=== PATIENT | female | born 1945 | race Caucasian/White ===

== ENCOUNTER 2016-11-20 11:12 | Emergency (ER) | payer MEDICARE, BC ==
[2016-11-20 11:24] VITALS: BP 131/81
[2016-11-20] MEDS ORDERED: Alum Hydrox/Mag Hydrox/Simeth 30 ML, Lidocaine 2% 15 ML PO ONE ×2 (11:25)
[2016-11-20 12:10] LABS: CHLORIDE,CL 104 mEq/L (98-106); SODIUM,NA 140 mEq/L (136-145)
--- NOTE | 2016-11-20 12:31 | EDM.PDOC ---
ED HPI GENERAL MEDICAL PROBLEM - General Chief Complaint: Chest Pain Stated Complaint: chest pain Time Seen by Provider: 11/20/16 11:19 Source of Information: Reports: Patient, Family History Limitations: Reports: No Limitations - History of Present Illness Onset: Today, Sudden Duration: Hour(s): Location: Reports: Chest Quality: Reports: Burning, Sharp Severity: Moderate Improves with: Reports: Medication Worsens with: Reports: None Associated Symptoms: Reports: Chest Pain Chest Pain Score (Numeric/FACES): 3 - Related Data Allergies Allergy/AdvReac Type Severity Reaction Status Date / Time azatadine maleate Allergy Cannot Verified 11/20/16 11:31 [From Optimine] Remember carbenicillin indanyl sodium Allergy Cannot Verified 11/20/16 11:31 [From Geocillin] Remember cefazolin sodium [From Ancef] Allergy Rash Verified 11/20/16 11:31 ciprofloxacin [From Cipro] Allergy Edema Verified 11/20/16 11:31 dabigatran etexilate Allergy Edema Verified 11/20/16 11:31 [From Pradaxa] ranitidine HCl [From Zantac] Allergy Blurred Verified 11/20/16 11:31 Vision venom-honey bee Allergy Difficulty Verified 11/20/16 11:31 [bee venom (honey bee)] Swallowing warfarin sodium Allergy Cannot Verified 11/20/16 11:31 [From Coumadin] Remember cephalexin monohydrate AdvReac Blurred Verified 11/20/16 11:31 [From Keflex] Vision ezetimibe AdvReac Muscle Verified 11/20/16 11:31 [From Vytorin 10-10] Aches simvastatin AdvReac Muscle Verified 11/20/16 11:31 [From Vytorin 10-10] Aches Home Meds: Home Meds Esomeprazole Magnesium [Nexium] 40 mg PO DAILY PRN 05/31/13 [History] Famotidine/Ca Carb/Mag Hydrox [Pepcid Complete Tablet Chew] 1 each PO DAILY PRN 06/02/13 [History] Hydrocodone/Acetaminophen [Hydrocodon-Acetaminophn 10-325] 1 tab PO Q4H PRN [History] Bevacizumab [Avastin] 400 mg IV Q21D 07/03/16 [History] Aspirin [Ecotrin] 81 mg PO DAILY 05/29/17 [History] Past Medical History HEENT History: Reports: Impaired Vision Cardiovascular History: Reports: High Cholesterol Respiratory History: Reports: Other (See Below) Other Respiratory History: lung nodule Gastrointestinal History: Reports: GERD 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) Other OB/BYN History: malignant neoplasm of ovary Musculoskeletal History: Reports: Osteoarthritis Endocrine/Metabolic History: Reports: Hypothyroidism Oncologic (Cancer) History: Reports: Lung Other Oncologic History: CERVICAL AND OVARIAN MANY YEARS AGO, 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 - Past Surgical History GI Surgical History: Reports: Cholecystectomy, Hernia Repair/Other, Ansley Fundoplication Female Surgical History: Reports: Hysterectomy Musculoskeletal Surgical History: Reports: Shoulder Surgery Social & Family History - Family History Family Medical History: Noncontributory Cardiac: Reports: CAD, Hypertension Endocrine/Metabolic: Reports: Diabetes, type II - Tobacco Use Smoking Status *Q: Never Smoker Second Hand Smoke Exposure: No - Caffeine Use Caffeine Use: Reports: Coffee - Recreational Drug Use Recreational Drug Use: No - Living Situation & Occupation Living situation: Reports: with Family ED ROS GENERAL - Review of Systems Review Of Systems: See Below Constitutional: Reports: Weakness HEENT: Reports: Dental Pain Respiratory: Reports: No Symptoms Cardiovascular: Reports: Chest Pain GI/Abdominal: Reports: Abdominal Pain, Other Musculoskeletal: Reports: No Symptoms Skin: Reports: No Symptoms Neurological: Reports: No Symptoms Psychiatric: Reports: Anxiety ED EXAM, GENERAL - Physical Exam Exam: See Below Exam Limited By: No Limitations General Appearance: Alert, WD/WN Ears: Normal External Exam Nose: Normal Inspection Throat/Mouth: Normal Inspection Head: Atraumatic, Normocephalic Neck: Normal Inspection Respiratory/Chest: No Respiratory Distress, Rhonchi Cardiovascular: Regular Rate, Rhythm, No Edema, No Rub GI/Abdominal: Normal Bowel Sounds, Soft, Non-Tender Back Exam: Normal Inspection Extremities: Normal Inspection Neurological: Alert, Oriented Psychiatric: Anxious Skin Exam: Warm, Dry Course - Vital Signs Last Recorded V/S: Last Vital Signs Temp 98.4 F 11/20/16 11:16 Pulse 79 11/20/16 11:16 Resp 20 11/20/16 11:16 BP 131/81 11/20/16 11:16 Pulse Ox 98 11/20/16 11:16 - Orders/Labs/Meds Orders: Active Orders 24 hr Category Date Time Status Chest 2V [CR] Stat Exams 11/20/16 11:20 Taken Labs: Laboratory Tests 11/20/16 11/20/16 11/20/16 Range/Units 11:45 11:45 11:45 WBC 4.4 L (5.0-10.0) 10^3/uL RBC 2.93 L (4.00-5.50) 10^6/uL Hgb 11.0 L (12.0-16.0) g/dL Hct 33.4 L (37.0-47.0) % MCV 114.0 H (82.0-94.0) fL MCH 37.5 H (27.0-32.0) pg MCHC 32.9 L (33.0-38.0) g/dL RDW Coeff of Reyes 14.9 (11.0-15.0) % Plt Count 285 (150-400) 10^3/uL Neut % (Auto) 65.3 (35-85) % Lymph % (Auto) 19.6 (10-55) % [place] % (Auto) 13.1 (0-16) % Eos % (Auto) 1.8 (0-5) % Baso % (Auto) 0.2 (0-3) % Neut # (Auto) 2.90 (1.80-7.00) 10^3/uL Lymph # (Auto) 0.87 L (1.00-4.80) 10^3/uL [place] # (Auto) 0.58 (0.00-0.80) 10^3/uL Eos # (Auto) 0.08 (0.00-0.45) 10^3/uL Baso # (Auto) 0.01 10^3/uL PT 10.7 (9.7-12.3) SEC INR 0.99 (0.92-1.18) APTT 26.2 (20.0-45.0) SEC Sodium 140 (136-145) mEq/L Potassium 4.3 (3.5-5.0) mEq/L Chloride 104 (98-106) mEq/L Carbon Dioxide 29 (21-32) mmol/L BUN 10 (7-18) mg/dL Creatinine 0.8 (0.6-1.0) mg/dL Est Cr Clr Drug Dosing 49.53 mL/min Estimated GFR (MDRD) > 60 (>=60) mL/min Glucose 111 H (75-99) mg/dL Calcium 8.7 (8.4-10.1) mg/dL Lactate Dehydrogenase 161 (100-190) U/L Creatine Kinase 44 (21-215) U/L Troponin I 0.034 (0.00-0.06) ng/mL Meds: Medications Discontinued Medications Generic Name Dose Route Start Last Admin Trade Name Freq PRN Reason Stop Dose Admin Al Hydroxide/Mg Hydroxide 30 0 ml 11/20/16 11:25 11/20/16 11:28 ml/ Lidocaine HCl 15 ml PO 11/20/16 11:26 45 ml ONETIME ONE Administration Departure - Departure Time of Disposition: 12:29 Disposition: Home, Self-Care 01 Condition: good Clinical Impression: Chronic GERD Instructions: Indigestion, [id number] Forms: ED Department Discharge Additional Instructions: follow up with your regular doctor. You may need daily medications to control you GERD - My Orders Last 24 Hours: My Active Orders 11/20/16 11:20 Chest 2V [CR] Stat - Assessment/Plan Last 24 Hours: My Active Orders 11/20/16 11:20 Chest 2V [CR] Stat
== END 2016-11-20 12:40 | disposition home or self-care (01) ==
LOC: CC.ED 11:12
DX: K21.9 Gastro-esophageal reflux disease without esophagitis (principal); E78.00 Pure hypercholesterolemia, unspecified; E11.9 Type 2 diabetes mellitus without complications; E03.9 Hypothyroidism, unspecified; M19.90 Unspecified osteoarthritis, unspecified site; Z79.82 Long term (current) use of aspirin; Z88.1 Allergy status to other antibiotic agents; Z91.030 Bee allergy status; Z90.710 Acquired absence of both cervix and uterus; Z90.49 Acquired absence of other specified parts of digestive tract; Z88.8 Allergy status to other drugs, medicaments and biological substances; Z79.899 Other long term (current) drug therapy
CPT/HCPCS: 36415; 71020; 80048; 82550; 83615; 84484; 85025; 85610; 85730; 93005; 93010; 99283; 99285; A9270

== ENCOUNTER 2016-12-24 19:02 | Emergency (ER) | payer MEDICARE, BC ==
[~2016-12-24 19:02] MED LIST: Ondansetron 4 MG Tab.DIS PO ONE
[2016-12-24] MEDS ORDERED: Sodium Chloride 0.9% 10 ML Syringe FLUSH PRN (19:14)
[2016-12-24 19:50] LABS: CHLORIDE,CL 100 mEq/L (98-106); SODIUM,NA 135 mEq/L (136-145)
--- NOTE | 2016-12-24 19:51 | EDM.PDOC ---
ED HPI GENERAL MEDICAL PROBLEM - General Chief Complaint: Fever Stated Complaint: fever, nausea, fatigue Time Seen by Provider: 12/24/16 19:10 Source of Information: Reports: Patient, Family History Limitations: Reports: No Limitations - History of Present Illness INITIAL COMMENTS - FREE TEXT/NARRATIVE: History and physical: History of present illness: [Patient comes the emergency room complaining of fever, fatigue and malaise. On December 22 she had a right pleural effusion drained resulting in 500 mL's. This was done by her specialist in [place]. That evening she developed body aches, fever and malaise. Highest temp was 100.8. She took 4 Advil at 5 PM today. She' s felt decreased appetite, nauseous and had episodes of vomiting for the past several days. had one episode of vomiting today. She is feeling more short of breath but denies any chest pain. She is feeling more weak and tired than usual. Complains of left hip pain which has been present for the past several weeks. Denies symptoms of cold or illness, abdominal pain and diarrhea. She is feeling more constipated than usual and last bowel movement was on Sunday, December 22. No burning with urination, urinary urgency or hematuria. Denies low back pain and neck pain. No numbness or tingling.] Review of Systems: As per history of present illness and below otherwise all systems reviewed and negative. Past medical history: As per history of present illness and as reviewed below otherwise noncontributory. Surgical history: As per history of present illness and is reviewed below other molina noncontributory. Social history: No reported history of drug or alcohol abuse. Family history: As per history of present illness and is reviewed below otherwise noncontributory. Physical exam: HEENT: Atraumatic, normocephalic. mucous membranes pink and slightly dry. neck supple, no lymphadenopathy. Lungs: Diminished breath sounds extend from right mid lung to right lower lung. Otherwise lung sounds are clear to auscultation throughout. Heart: S1-S2, regular rate and rhythm. No murmur gallop click or rub. Abdomen: Bowel sounds are present but hypoactive in all 4 quadrants. Abdomen is soft nondistended and nontender. No masses guarding or rebound. Genitourinary: Deferred. Rectal: Deferred. Extremities: atraumatic, no cyanosis or edema to feet or lower legs. Neurovascular unremarkable. Neuro: Awake, alert, oriented. Motor and sensory unremarkable throughout. Exam nonfocal. Diagnostics: [CBC, CMP, urinalysis, lactic acid, blood cultures, chest x-ray, CT chest with contrast] Therapeutics: [Zofran 4 mg IV] Impression: [Nausea and vomiting] Plan: [Lab results show no infection or other concerns. No cause identified in her labs for her nausea and vomiting. Patient's nausea is significantly improved with Zofran. CT result is called by Dr. Do from [place] [facility] who reports that patient's chest CT is unchanged from that of December 15. There is moderate right pleural fluid noted. This is reviewed with patient and we discussed that this likely is not an emergent problem at this time. Offered to her that we could contact her oncologist and possibly transfer to [place] yet this evening which she declines. She states that she will contact her oncologist tomorrow and discuss CT findings and develop further plan. We'll discharge to home with take home packs of Zofran ODT. She is to push fluids and rest. Follow-up with oncology tomorrow. Patient daughter in agreement with today's plan. All of their questions are answered and concerns are addressed.] Definitive disposition and diagnosis is appropriate pending reevaluation and review of above. Right Middle Back Pain Score (Numeric/FACES): 9 - Related Data Allergies Allergy/AdvReac Type Severity Reaction Status Date / Time azatadine maleate Allergy Cannot Verified 12/24/16 19:05 [From Optimine] Remember carbenicillin indanyl sodium Allergy Cannot Verified 12/24/16 19:05 [From Geocillin] Remember cefazolin sodium [From Ancef] Allergy Rash Verified 12/24/16 19:05 ciprofloxacin [From Cipro] Allergy Edema Verified 12/24/16 19:05 dabigatran etexilate Allergy Edema Verified 12/24/16 19:05 [From Pradaxa] ranitidine HCl [From Zantac] Allergy Blurred Verified 12/24/16 19:05 Vision venom-honey bee Allergy Difficulty Verified 12/24/16 19:05 [bee venom (honey bee)] Swallowing warfarin sodium Allergy Cannot Verified 12/24/16 19:05 [From Coumadin] Remember cephalexin monohydrate AdvReac Blurred Verified 12/24/16 19:05 [From Keflex] Vision ezetimibe AdvReac Muscle Verified 12/24/16 19:05 [From Vytorin 10-10] Aches simvastatin AdvReac Muscle Verified 12/24/16 19:05 [From Vytorin 10-10] Aches Home Meds: Home Meds Esomeprazole Magnesium [Nexium] 40 mg PO DAILY PRN 05/31/13 [History] Famotidine/Ca Carb/Mag Hydrox [Pepcid Complete Tablet Chew] 1 each PO DAILY PRN 06/02/13 [History] Hydrocodone/Acetaminophen [Hydrocodon-Acetaminophn 10-325] 1 tab PO Q4H PRN [History] Bevacizumab [Avastin] 400 mg IV Q21D 07/03/16 [History] Aspirin [Ecotrin] 81 mg PO DAILY 11/20/16 [History] Levothyroxine Sodium [Tirosint] 50 mcg PO DAILY 12/24/16 [History] Past Medical History HEENT History: Reports: Impaired Vision Cardiovascular History: Reports: High Cholesterol Respiratory History: Reports: Other (See Below) Other Respiratory History: lung nodule Gastrointestinal History: Reports: GERD 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) Other OB/BYN History: malignant neoplasm of ovary Musculoskeletal History: Reports: Osteoarthritis Endocrine/Metabolic History: Reports: Hypothyroidism Oncologic (Cancer) History: Reports: Lung Other Oncologic History: CERVICAL AND OVARIAN MANY YEARS AGO, 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 - Past Surgical History GI Surgical History: Reports: Cholecystectomy, Hernia Repair/Other, Ansley Fundoplication Female Surgical History: Reports: Hysterectomy Musculoskeletal Surgical History: Reports: Shoulder Surgery Social & Family History - Family History Family Medical History: Noncontributory Cardiac: Reports: CAD, Hypertension Endocrine/Metabolic: Reports: Diabetes, type II - Tobacco Use Smoking Status *Q: Never Smoker Second Hand Smoke Exposure: No - Caffeine Use Caffeine Use: Reports: Coffee - Recreational Drug Use Recreational Drug Use: No - Living Situation & Occupation Living situation: Reports: with Family ED ROS GENERAL - Review of Systems Review Of Systems: ROS reveals no pertinent complaints other than HPI. ED EXAM, SEPSIS - Physical Exam Exam: See Below Course - Vital Signs Last Recorded V/S: Last Vital Signs Temp 98.1 F 12/24/16 21:35 Pulse 72 12/24/16 21:35 Resp 20 12/24/16 21:35 BP 109/65 12/24/16 21:35 Pulse Ox 93 L 12/24/16 21:35 - Orders/Labs/Meds Orders: Active Orders 24 hr Category Date Time Status Chest 2V [CR] Stat Exams 12/24/16 19:14 Taken Chest w Cont [CT] Stat Exams 12/24/16 20:17 Taken CULTURE BLOOD [BC] Stat Lab 12/24/16 19:14 Received CULTURE BLOOD [BC] Stat Lab 12/24/16 19:14 Results Sodium Chloride 0.9% [Saline Flush] Med 12/24/16 19:14 Active 10 ml FLUSH ASDIRECTED PRN Blood Culture x2 Reflex Set [OM.PC] Stat Oth 12/24/16 19:13 Ordered Saline Lock Insert [OM.PC] Stat Oth 12/24/16 19:14 Ordered Medication Orders Sodium Chloride (Saline Flush) 10 ml FLUSH ASDIRECTED PRN PRN Reason: Keep Vein Open Last Admin: 12/24/16 20:13 Dose: 10 ml Labs: Laboratory Tests 12/24/16 12/24/16 12/24/16 Range/Units 19:13 19:13 19:14 WBC 7.1 (5.0-10.0) 10^3/uL RBC 2.72 L (4.00-5.50) 10^6/uL Hgb 10.4 L (12.0-16.0) g/dL Hct 31.6 L (37.0-47.0) % MCV 116.2 H (82.0-94.0) fL MCH 38.2 H (27.0-32.0) pg MCHC 32.9 L (33.0-38.0) g/dL RDW Coeff of Reyes 13.9 (11.0-15.0) % Plt Count 287 (150-400) 10^3/uL Neut % (Auto) 73.0 (35-85) % Lymph % (Auto) 11.4 (10-55) % [place] % (Auto) 14.4 (0-16) % Eos % (Auto) 1.1 (0-5) % Baso % (Auto) 0.1 (0-3) % Neut # (Auto) 5.16 (1.80-7.00) 10^3/uL Lymph # (Auto) 0.81 L (1.00-4.80) 10^3/uL [place] # (Auto) 1.02 H (0.00-0.80) 10^3/uL Eos # (Auto) 0.08 (0.00-0.45) 10^3/uL Baso # (Auto) 0.01 10^3/uL Sodium 135 L (136-145) mEq/L Potassium 3.8 (3.5-5.0) mEq/L Chloride 100 (98-106) mEq/L Carbon Dioxide 24 (21-32) mmol/L BUN 11 (7-18) mg/dL Creatinine 0.8 (0.6-1.0) mg/dL Est Cr Clr Drug Dosing 47.26 mL/min Estimated GFR (MDRD) > 60 (>=60) mL/min Glucose 119 H (75-99) mg/dL Lactic Acid 1.1 (0.4-2.0) mmol/L Calcium 8.7 (8.4-10.1) mg/dL Total Bilirubin 0.6 (0.0-1.0) mg/dL AST 33 (15-37) U/L ALT 26 (12-78) U/L Alkaline Phosphatase 87 (46-116) U/L Total Protein 7.3 (6.4-8.2) g/dL Albumin 2.8 L (3.4-5.0) g/dL Urine Color (YELLOW) Urine Appearance (CLEAR) Urine pH (4.5-8.0) Ur Specific [place] (1.003-1.020) Urine Protein (NEGATIVE) mg/dL Urine Glucose (UA) (NEGATIVE) mg/dL Urine Ketones (NEGATIVE) mg/dL Urine Occult Blood (NEGATIVE) Urine Nitrite (NEGATIVE) Urine Bilirubin (NEGATIVE) Urine Urobilinogen (0.2-1.0) EU/dL Ur Leukocyte Esterase (NEGATIVE) Urine RBC (0-5) /HPF Urine WBC (0-5) /HPF Ur Squamous Epith Cells (NOT SEEN) /HPF Urine Bacteria (NOT SEEN) /HPF Urine Mucus (NOT SEEN) /HPF 12/24/16 Range/Units 20:23 WBC (5.0-10.0) 10^3/uL RBC (4.00-5.50) 10^6/uL Hgb (12.0-16.0) g/dL Hct (37.0-47.0) % MCV (82.0-94.0) fL MCH (27.0-32.0) pg MCHC (33.0-38.0) g/dL RDW Coeff of Reyes (11.0-15.0) % Plt Count (150-400) 10^3/uL Neut % (Auto) (35-85) % Lymph % (Auto) (10-55) % [place] % (Auto) (0-16) % Eos % (Auto) (0-5) % Baso % (Auto) (0-3) % Neut # (Auto) (1.80-7.00) 10^3/uL Lymph # (Auto) (1.00-4.80) 10^3/uL [place] # (Auto) (0.00-0.80) 10^3/uL Eos # (Auto) (0.00-0.45) 10^3/uL Baso # (Auto) 10^3/uL Sodium (136-145) mEq/L Potassium (3.5-5.0) mEq/L Chloride (98-106) mEq/L Carbon Dioxide (21-32) mmol/L BUN (7-18) mg/dL Creatinine (0.6-1.0) mg/dL Est Cr Clr Drug Dosing mL/min Estimated GFR (MDRD) (>=60) mL/min Glucose (75-99) mg/dL Lactic Acid (0.4-2.0) mmol/L Calcium (8.4-10.1) mg/dL Total Bilirubin (0.0-1.0) mg/dL AST (15-37) U/L ALT (12-78) U/L Alkaline Phosphatase (46-116) U/L Total Protein (6.4-8.2) g/dL Albumin (3.4-5.0) g/dL Urine Color Margot (YELLOW) Urine Appearance Clear (CLEAR) Urine pH 6.0 (4.5-8.0) Ur Specific [place] 1.023 H (1.003-1.020) Urine Protein Trace H (NEGATIVE) mg/dL Urine Glucose (UA) 100 H (NEGATIVE) mg/dL Urine Ketones Trace H (NEGATIVE) mg/dL Urine Occult Blood Negative (NEGATIVE) Urine Nitrite Negative (NEGATIVE) Urine Bilirubin Negative (NEGATIVE) Urine Urobilinogen 0.2 (0.2-1.0) EU/dL Ur Leukocyte Esterase Small H (NEGATIVE) Urine RBC Not seen (0-5) /HPF Urine WBC 0-5 (0-5) /HPF Ur Squamous Epith Cells Many H (NOT SEEN) /HPF Urine Bacteria Occasional H (NOT SEEN) /HPF Urine Mucus Moderate H (NOT SEEN) /HPF Meds: Medications Generic Name Dose Route Start Last Admin Trade Name Frejohana PRN Reason Stop Dose Admin Sodium Chloride 10 ml 12/24/16 19:14 12/24/16 20:13 Saline Flush FLUSH 10 ml ASDIRECTED PRN Administration Keep Vein Open Discontinued Medications Generic Name Dose Route Start Last Admin Trade Name Frejohana PRN Reason Stop Dose Admin Heparin Sodium (Porcine) Confirm 12/24/16 22:29 Heparin Sodium Administered 12/24/16 22:30 Dose 5,000 units .ROUTE .STK-MED ONE Heparin Sodium (Porcine) Confirm 12/24/16 22:31 Heparin Lock Flush 100 Units/Ml Administered 12/24/16 22:32 Dose 500 units .ROUTE .STK-MED ONE Iopamidol 100 ml 12/24/16 20:14 12/24/16 20:38 Isovue-300 (61%) IVPUSH 12/24/16 20:15 100 ml ONETIME ONE Administration Ondansetron HCl 4 mg 12/24/16 20:09 12/24/16 20:13 Zofran IVPUSH 12/24/16 20:10 4 mg ONETIME ONE Administration Ondansetron HCl 2 packet 12/24/16 22:14 Take Home: Ondansetron Odt 4 Mg, 2 Tab Pack PO 12/24/16 22:15 ONETIME ONE Departure - Departure Time of Disposition: 22:20 Disposition: Home, Self-Care 01 Clinical Impression: Pleural effusion Nausea and vomiting Qualifiers: Vomiting type: unspecified Vomiting Intractability: non-intractable Qualified Code(s): R11.2 - Nausea with vomiting, unspecified - Discharge Information Referrals: Gumaro Davis MD [Primary Care Provider] - Forms: ED Department Discharge Additional Instructions: The following information is given to patients seen in the emergency department who are being discharged home. This information is to outline your options for follow-up care and provides all patient seen in our emergency department with a follow-up referral. The need for follow-up, as well as the timing and circumstances, are variable depending upon the specifics of each emergency department visit. If you don't have a primary care physician on staff, we will provide you with a referral. We always advise to contact your personal physician following an emergency department visit to inform them of the circumstances of the visit and for follow-up with them and/or the need for any referrals to a consulting specialist. The emergency department will also refer you to a specialist when appropriate. This referral assures that you have the opportunity for follow-up care with a specialist. All of these measures are taken in an effort to provide you with optimal care, which includes your follow-up. Under all circumstances we always encourage you to contact your private physician who remains a resource for coordinating your care. When calling for follow-up care, please make the office aware that this follow-up is from your recent emergency room visit. If for any reason you are refused follow-up please contact the [facility] emergency department at and ask to speak to the emergency department nurse. [facility] [address] [id number] Follow-up with your surgeon or specialist tomorrow morning. Take medications as prescribed. Push fluids, rest. Return to ER as needed as discussed. - My Orders Last 24 Hours: My Active Orders 12/24/16 19:13 Blood Culture x2 Reflex Set [OM.PC] Stat 12/24/16 19:14 Chest 2V [CR] Stat CULTURE BLOOD [BC] Stat CULTURE BLOOD [BC] Stat Sodium Chloride 0.9% [Saline Flush] 10 ml FLUSH ASDIRECTED PRN Saline Lock Insert [OM.PC] Stat 12/24/16 20:17 Chest w Cont [CT] Stat - Assessment/Plan Last 24 Hours: My Active Orders 12/24/16 19:13 Blood Culture x2 Reflex Set [OM.PC] Stat 12/24/16 19:14 Chest 2V [CR] Stat CULTURE BLOOD [BC] Stat CULTURE BLOOD [BC] Stat Sodium Chloride 0.9% [Saline Flush] 10 ml FLUSH ASDIRECTED PRN Saline Lock Insert [OM.PC] Stat 12/24/16 20:17 Chest w Cont [CT] Stat
[2016-12-24] MEDS ORDERED: Ondansetron 4 MG/2 ML SDV IVPUSH ONE (20:09)
[2016-12-24] MEDS ORDERED: Iopamidol 612 MG/ML 100 ML Bottle IVPUSH ONE (20:14)
[2016-12-24 21:36] VITALS: BP 109/65
[2016-12-24] MEDS ORDERED: Take Home: Ondansetron 4 MG Tab.DIS, 2 Tab Pack PO ONE (22:14)
== END 2016-12-24 22:30 | disposition home or self-care (01) ==
LOC: CC.ED 19:02
DX: J90 Pleural effusion, not elsewhere classified (principal); R11.2 Nausea with vomiting, unspecified; H54.7 Unspecified visual loss; E78.00 Pure hypercholesterolemia, unspecified; K21.9 Gastro-esophageal reflux disease without esophagitis; M19.90 Unspecified osteoarthritis, unspecified site; E03.9 Hypothyroidism, unspecified; Z90.710 Acquired absence of both cervix and uterus; Z88.8 Allergy status to other drugs, medicaments and biological substances; Z88.1 Allergy status to other antibiotic agents; Z79.899 Other long term (current) drug therapy; Z79.82 Long term (current) use of aspirin
CPT/HCPCS: 36415; 36591; 71020; 71260; 80053; 81001; 83605; 85025; 87040; 96374; 99284; A9270; J1642; J2405; J7050; Q9967